=== PATIENT | male | born 1965 | race Caucasian/White ===

== ENCOUNTER 2017-09-03 07:38 | Emergency (ER) | payer OTHER ==
[2017-09-03] MEDS: ACETAMINOPHEN 500 MG TAB PO (08:11)
== END 2017-09-03 09:40 | disposition home or self-care (01) ==
LOC: FTE 07:38
DX: M25.561 Pain in right knee (principal); R22.41 Localized swelling, mass and lump, right lower limb
CPT/HCPCS: 73562; 99283-25